=== PATIENT | female | born 1995 | race African-American/Black ===

== ENCOUNTER 2016-09-15 12:15 | Emergency (ER) | payer OTHER ==
[~2016-09-15] VITALS: Ht 162.6 cm; Wt 74.4 kg
[2016-09-15] MEDS ORDERED: prenatal vitamin PO (12:28)
[2016-09-15] MEDS ORDERED: ACETAMINOPHEN 325 MG TAB PO ONE (13:00)
[2016-09-15] MEDS ORDERED: NS 1,000 ML IV ONE (13:00)
[2016-09-15] MEDS ORDERED: METOCLOPRAMIDE INJ 10MG/2ML VIAL (J2765) IV ONE (13:00)
[2016-09-15] MEDS ORDERED: ONDANSETRON 4MG/2ML VIAL (J2405) IV ONE (13:00)
[2016-09-15 13:30] LABS: BASO % 0.5 % (0.0-1.0); EOS # 0.2 K/mm3 (0.0-0.50); EOS % 3.9 % (0.0-3.0); LARGE UNSTAINED CELL # 0.1 K/mm3 (0.0-0.4); LARGE UNSTAINED CELL % 1.9 % (0.0-4.0); LYMPH # 1.9 K/mm3 (1.5-6.5); LYMPH % 30.3 % (24.0-44.0); MEAN CORPUSCULAR HEMOGLOBIN 30.5 pg (27.0-33.0); MEAN CORPUSCULAR HGB CONC 33.8 g/dl (32.0-36.5); MEAN CORPUSCULAR VOLUME 90.2 fl (80.0-96.0); MONO # 0.3 K/mm3 (0.0-0.8); MONO % 4.5 % (0.0-5.0); NEUTROPHILS # 3.7 K/mm3 (1.8-7.7); NEUTROPHILS % 58.9 % (36.0-66.0); PLATELET COUNT, AUTOMATED 214 k/mm3 (150-450); RED CELL DISTRIBUTION WIDTH 12.7 % (11.5-14.5); WHITE BLOOD COUNT 6.2 K/mm3 (4.0-10.0)
--- NOTE | 2016-09-15 13:42 | REP ---
FIRST TRIMESTER ULTRASOUND: Real-time sonographic evaluation of the gravid uterus is performed utilizing transabdominal technique. There is a single living intrauterine gestation, estimated gestational age 8 weeks 4 days based on crown rump length of 20 mm, EDC 04/23/2017. heart rate 168 beats per minute. There is no subchorionic hemorrhage. No definite maternal adnexal region abnormality is seen. There is trace free fluid. Signed by Manpreet Hernandez MD 09/15/2016 07:49 P
[2016-09-15] MEDS ORDERED: REGL5TAB2 PO (13:56)
[2016-09-15 14:05] LABS: ALBUMIN 3.4 GM/DL (3.2-5.2); ALBUMIN/GLOBULIN RATIO 0.79 (1.00-1.93); ALKALINE PHOSPHATASE 53 U/L (45-117); ALT/SGPT 19 U/L (12-78); ANION GAP 8 MEQ/L (8-16); AST/SGOT 12 U/L (15-37); BILIRUBIN,DIRECT < 0.1 MG/DL (0.0-0.2); BILIRUBIN,TOTAL 0.3 MG/DL (0.2-1.0); BLOOD UREA NITROGEN 5 MG/DL (7-18); CARBON DIOXIDE LEVEL 25 MEQ/L (21-32); CHLORIDE LEVEL 105 MEQ/L (98-107); GLOMERULAR FILTRATION RATE > 60.0 (>60); GLUCOSE, FASTING 80 MG/DL (70-105); POTASSIUM SERUM 3.6 MEQ/L (3.5-5.1); SODIUM LEVEL 138 MEQ/L (136-145); TOTAL PROTEIN 7.7 GM/DL (6.4-8.2)
[2016-09-15 14:16] VITALS: BP 113/68
== END 2016-09-15 14:28 | disposition home or self-care (01) ==
LOC: M ED 12:46
DX: O21.8 Other vomiting complicating pregnancy (principal); Z3A.08 8 weeks gestation of pregnancy
CPT/HCPCS: 76801; 80048; 80076; 81001; 83690; 84702; 85025; 86901; 96374; 96375; 99284; J2765

== ENCOUNTER 2016-09-20 13:35 | Emergency (ER) | payer OTHER, MEDICAID ==
[~2016-09-20] VITALS: Ht 162.6 cm; Wt 74.4 kg
[~2016-09-20 13:35] MED LIST: REGL5TAB2 PO; prenatal vitamin PO
[2016-09-20] MEDS ORDERED: ACETAMINOPHEN TAB 650MG DOSE (2X325MG) PO ONE (15:15)
[2016-09-20] MEDS ORDERED: NS 1,000 ML IV ONE (15:15)
[2016-09-20] MEDS ORDERED: ONDANSETRON 4MG/2ML VIAL (J2405) IV ONE (15:15)
[2016-09-20 15:50] LABS: BASO # 0.1 K/mm3 (0.0-0.2); BASO % 1.1 % (0.0-1.0); EOS # 0.2 K/mm3 (0.0-0.50); EOS % 2.3 % (0.0-3.0); LARGE UNSTAINED CELL # 0.1 K/mm3 (0.0-0.4); LARGE UNSTAINED CELL % 1.4 % (0.0-4.0); LYMPH # 1.8 K/mm3 (1.5-6.5); LYMPH % 24.3 % (24.0-44.0); MEAN CORPUSCULAR HGB CONC 33.9 g/dl (32.0-36.5); MEAN CORPUSCULAR VOLUME 88.5 fl (80.0-96.0); MONO # 0.3 K/mm3 (0.0-0.8); MONO % 4.1 % (0.0-5.0); NEUTROPHILS # 4.6 K/mm3 (1.8-7.7); NEUTROPHILS % 66.6 % (36.0-66.0); PLATELET COUNT, AUTOMATED 217 k/mm3 (150-450); RED CELL DISTRIBUTION WIDTH 12.9 % (11.5-14.5)
[2016-09-20 16:09] LABS: ALBUMIN 3.8 GM/DL (3.2-5.2); ALBUMIN/GLOBULIN RATIO 0.86 (1.00-1.93); ALKALINE PHOSPHATASE 57 U/L (45-117); ALT/SGPT 28 U/L (12-78); ANION GAP 9 MEQ/L (8-16); AST/SGOT 21 U/L (15-37); BILIRUBIN,DIRECT < 0.1 MG/DL (0.0-0.2); BILIRUBIN,TOTAL 0.3 MG/DL (0.2-1.0); BLOOD UREA NITROGEN 4 MG/DL (7-18); CALCIUM LEVEL 9.1 MG/DL (8.5-10.1); CARBON DIOXIDE LEVEL 25 MEQ/L (21-32); CHLORIDE LEVEL 104 MEQ/L (98-107); CREATININE FOR GFR 0.64 MG/DL (0.55-1.02); GLOMERULAR FILTRATION RATE > 60.0 (>60); GLUCOSE, FASTING 84 MG/DL (70-105); SODIUM LEVEL 138 MEQ/L (136-145); TOTAL PROTEIN 8.2 GM/DL (6.4-8.2)
[2016-09-20] MEDS ORDERED: ZOFR4TAB3 PO (17:02)
[2016-09-20] MEDS ORDERED: PYRI25TA3 PO (17:02)
[2016-09-20 17:38] VITALS: BP 124/66
== END 2016-09-20 17:41 | disposition home or self-care (01) ==
LOC: M ED 14:59
DX: O21.9 Vomiting of pregnancy, unspecified (principal); Z3A.09 9 weeks gestation of pregnancy
CPT/HCPCS: 80048; 80076; 81001; 83690; 85025; 96361; 96374; 99282; J2405

== ENCOUNTER 2016-10-01 14:35 | Emergency (ER) | payer OTHER, MEDICAID ==
[~2016-10-01] VITALS: Ht 162.6 cm; Wt 74.4 kg
[~2016-10-01 14:35] MED LIST changes: +PYRI25TA3 PO; +ZOFR4TAB3 PO
[2016-10-01] MEDS ORDERED: PANTOPRAZOLE 40MG INJ (PROTONIX) (C9113) IV ONE (15:15)
[2016-10-01] MEDS ORDERED: ONDANSETRON 4MG/2ML VIAL (J2405) IV ONE (15:15)
[2016-10-01] MEDS ORDERED: NS 1,000 ML IV ONE ×2 (15:15→18:45)
[2016-10-01 16:28] LABS: BASO % 0.6 % (0.0-1.0); EOS # 0.2 K/mm3 (0.0-0.50); LARGE UNSTAINED CELL # 0.1 K/mm3 (0.0-0.4); LARGE UNSTAINED CELL % 1.2 % (0.0-4.0); LYMPH # 2.4 K/mm3 (1.5-6.5); LYMPH % 30.5 % (24.0-44.0); MEAN CORPUSCULAR HEMOGLOBIN 30.1 pg (27.0-33.0); MEAN CORPUSCULAR HGB CONC 34.5 g/dl (32.0-36.5); MONO # 0.3 K/mm3 (0.0-0.8); MONO % 3.3 % (0.0-5.0); NEUTROPHILS # 4.7 K/mm3 (1.8-7.7); NEUTROPHILS % 61.4 % (36.0-66.0); PLATELET COUNT, AUTOMATED 218 k/mm3 (150-450); RED CELL DISTRIBUTION WIDTH 12.6 % (11.5-14.5); WHITE BLOOD COUNT 7.7 K/mm3 (4.0-10.0)
[2016-10-01 16:56] LABS: ALBUMIN 3.4 GM/DL (3.2-5.2); ALBUMIN/GLOBULIN RATIO 0.74 (1.00-1.93); ALKALINE PHOSPHATASE 55 U/L (45-117); ALT/SGPT 22 U/L (12-78); ANION GAP 9 MEQ/L (8-16); AST/SGOT 11 U/L (15-37); BILIRUBIN,DIRECT 0.1 MG/DL (0.0-0.2); BILIRUBIN,TOTAL 0.3 MG/DL (0.2-1.0); BLOOD UREA NITROGEN 3 MG/DL (7-18); CALCIUM LEVEL 9.1 MG/DL (8.5-10.1); CARBON DIOXIDE LEVEL 25 MEQ/L (21-32); CHLORIDE LEVEL 103 MEQ/L (98-107); CREATININE FOR GFR 0.63 MG/DL (0.55-1.02); GLOMERULAR FILTRATION RATE > 60.0 (>60); GLUCOSE, FASTING 81 MG/DL (70-105); POTASSIUM SERUM 3.1 MEQ/L (3.5-5.1); SODIUM LEVEL 137 MEQ/L (136-145)
[2016-10-01 18:56] VITALS: BP 114/60
[2016-10-01] MEDS ORDERED: ZOFR4TAB3 PO (19:51)
== END 2016-10-01 19:55 | disposition home or self-care (01) ==
LOC: M ED 15:30
DX: O21.0 Mild hyperemesis gravidarum (principal); Z3A.11 11 weeks gestation of pregnancy
CPT/HCPCS: 80048; 80076; 85025; 87086; 96361; 96374; 96375; 99283; C9113; J2405

== ENCOUNTER 2016-10-16 21:49 | Emergency (ER) | payer MEDICAID, OTHER ==
[~2016-10-16] VITALS: Ht 162.6 cm; Wt 68.9 kg
[2016-10-16] MEDS ORDERED: METOCLOPRAMIDE INJ 10MG/2ML VIAL (J2765) As Ordered ONE (22:49)
[2016-10-16] MEDS ORDERED: METOCLOPRAMIDE INJ 10MG/2ML VIAL (J2765) IV ONE (23:00)
[2016-10-16] MEDS ORDERED: NS 1,000 ML IV ONE (23:00)
[2016-10-17 00:24] LABS: ANION GAP 8 MEQ/L (8-16); BLOOD UREA NITROGEN 3 MG/DL (7-18); CALCIUM LEVEL 9.2 MG/DL (8.5-10.1); CARBON DIOXIDE LEVEL 23 MEQ/L (21-32); CHLORIDE LEVEL 107 MEQ/L (98-107); CREATININE FOR GFR 0.43 MG/DL (0.55-1.02); GLOMERULAR FILTRATION RATE > 60.0 (>60); GLUCOSE, FASTING 92 MG/DL (70-105); POTASSIUM SERUM 3.5 MEQ/L (3.5-5.1); SODIUM LEVEL 138 MEQ/L (136-145)
[2016-10-17 00:25] LABS: MEAN CORPUSCULAR VOLUME 87.7 fl (80.0-96.0); WHITE BLOOD COUNT 6.6 K/mm3 (4.0-10.0)
[2016-10-17 00:26] LABS: BASO % 0.4 % (0.0-1.0); EOS # 0.2 K/mm3 (0.0-0.50); EOS % 2.3 % (0.0-3.0); LARGE UNSTAINED CELL # 0.1 K/mm3 (0.0-0.4); LARGE UNSTAINED CELL % 1.5 % (0.0-4.0); LYMPH # 1.6 K/mm3 (1.5-6.5); LYMPH % 24.9 % (24.0-44.0); MEAN CORPUSCULAR HEMOGLOBIN 29.9 pg (27.0-33.0); MEAN CORPUSCULAR HGB CONC 34.1 g/dl (32.0-36.5); MONO # 0.3 K/mm3 (0.0-0.8); MONO % 4.6 % (0.0-5.0); NEUTROPHILS # 4.4 K/mm3 (1.8-7.7); NEUTROPHILS % 66.2 % (36.0-66.0); PLATELET COUNT, AUTOMATED 215 k/mm3 (150-450); RED CELL DISTRIBUTION WIDTH 12.4 % (11.5-14.5)
[2016-10-17 00:38] VITALS: BP 111/60
[2016-10-17] MEDS ORDERED: REGL10TA6 PO (00:38)
[2016-10-18] MEDS ORDERED: VITA25TA (18:03)
== END 2016-10-17 00:40 | disposition home or self-care (01) ==
LOC: M ED 23:36
DX: O21.0 Mild hyperemesis gravidarum (principal); Z3A.13 13 weeks gestation of pregnancy
CPT/HCPCS: 36415; 80048; 85025; 96361; 96374; 99283; J2765

== ENCOUNTER 2016-10-18 17:35 | Emergency (ER) | payer OTHER ==
[~2016-10-18] VITALS: Ht 162.6 cm; Wt 68.9 kg
[~2016-10-18 17:35] MED LIST changes: +REGL10TA6 PO
[2016-10-18] MEDS ORDERED: VITA25TA (18:03)
[2016-10-18] MEDS ORDERED: METOCLOPRAMIDE INJ 10MG/2ML VIAL (J2765) IV ONE (18:30)
[2016-10-18] MEDS ORDERED: NS 1,000 ML IV ONE (18:30)
[2016-10-18 19:02] LABS: BASO % 0.5 % (0.0-1.0); EOS # 0.1 K/mm3 (0.0-0.50); LARGE UNSTAINED CELL # 0.1 K/mm3 (0.0-0.4); LARGE UNSTAINED CELL % 1.1 % (0.0-4.0); LYMPH # 1.5 K/mm3 (1.5-6.5); LYMPH % 20.8 % (24.0-44.0); MEAN CORPUSCULAR HEMOGLOBIN 30.4 pg (27.0-33.0); MEAN CORPUSCULAR HGB CONC 34.7 g/dl (32.0-36.5); MEAN CORPUSCULAR VOLUME 87.6 fl (80.0-96.0); MONO # 0.2 K/mm3 (0.0-0.8); MONO % 3.1 % (0.0-5.0); NEUTROPHILS # 5.4 K/mm3 (1.8-7.7); NEUTROPHILS % 73.5 % (36.0-66.0); PLATELET COUNT, AUTOMATED 238 k/mm3 (150-450); RED CELL DISTRIBUTION WIDTH 12.4 % (11.5-14.5); WHITE BLOOD COUNT 7.3 K/mm3 (4.0-10.0)
[2016-10-18 19:24] LABS: ALBUMIN 3.3 GM/DL (3.2-5.2); ALBUMIN/GLOBULIN RATIO 0.75 (1.00-1.93); ALKALINE PHOSPHATASE 52 U/L (45-117); ALT/SGPT 19 U/L (12-78); ANION GAP 10 MEQ/L (8-16); AST/SGOT 13 U/L (15-37); BILIRUBIN,DIRECT < 0.1 MG/DL (0.0-0.2); BILIRUBIN,TOTAL 0.3 MG/DL (0.2-1.0); BLOOD UREA NITROGEN 3 MG/DL (7-18); CALCIUM LEVEL 9.2 MG/DL (8.5-10.1); CARBON DIOXIDE LEVEL 24 MEQ/L (21-32); CHLORIDE LEVEL 103 MEQ/L (98-107); GLOMERULAR FILTRATION RATE > 60.0 (>60); GLUCOSE, FASTING 86 MG/DL (70-105); POTASSIUM SERUM 3.1 MEQ/L (3.5-5.1); SODIUM LEVEL 137 MEQ/L (136-145); TOTAL PROTEIN 7.7 GM/DL (6.4-8.2)
[2016-10-18 20:38] VITALS: BP 138/71
== END 2016-10-18 21:09 | disposition home or self-care (01) ==
LOC: M ED 19:04
DX: O21.0 Mild hyperemesis gravidarum (principal); O26.891 Other specified pregnancy related conditions, first trimester; R10.84 Generalized abdominal pain; Z3A.13 13 weeks gestation of pregnancy
CPT/HCPCS: 36415; 80048; 80076; 83735; 85025; 96374; 99284; J2765

== ENCOUNTER 2016-10-20 05:41 | Emergency (ER) | payer OTHER, MEDICAID ==
[~2016-10-20] VITALS: Ht 162.6 cm; Wt 68.9 kg
[~2016-10-20 05:41] MED LIST changes: -DICL10TA PO; -PRENTAB40 PO; -PROM25TA PO
[2016-10-20] MEDS ORDERED: PRENTAB40 PO (05:52)
[2016-10-20] MEDS ORDERED: METOCLOPRAMIDE INJ 10MG/2ML VIAL (J2765) IV ONE (06:45)
[2016-10-20] MEDS ORDERED: NS 1,000 ML IV ONE (06:45)
[2016-10-20 06:55] LABS: BASO % 0.4 % (0.0-1.0); EOS # 0.1 K/mm3 (0.0-0.50); EOS % 0.7 % (0.0-3.0); LARGE UNSTAINED CELL # 0.1 K/mm3 (0.0-0.4); LYMPH # 1.4 K/mm3 (1.5-6.5); LYMPH % 14.3 % (24.0-44.0); MEAN CORPUSCULAR HEMOGLOBIN 30.3 pg (27.0-33.0); MEAN CORPUSCULAR HGB CONC 34.8 g/dl (32.0-36.5); MONO # 0.4 K/mm3 (0.0-0.8); MONO % 4.1 % (0.0-5.0); NEUTROPHILS # 7.2 K/mm3 (1.8-7.7); NEUTROPHILS % 79.5 % (36.0-66.0); PLATELET COUNT, AUTOMATED 266 k/mm3 (150-450); RED CELL DISTRIBUTION WIDTH 12.6 % (11.5-14.5)
[2016-10-20 07:18] LABS: ALBUMIN 3.4 GM/DL (3.2-5.2); ALBUMIN/GLOBULIN RATIO 0.68 (1.00-1.93); ALKALINE PHOSPHATASE 56 U/L (45-117); ALT/SGPT 25 U/L (12-78); ANION GAP 10 MEQ/L (8-16); AST/SGOT 15 U/L (15-37); BILIRUBIN,DIRECT 0.1 MG/DL (0.0-0.2); BILIRUBIN,TOTAL 0.6 MG/DL (0.2-1.0); BLOOD UREA NITROGEN 5 MG/DL (7-18); CALCIUM LEVEL 9.8 MG/DL (8.5-10.1); CARBON DIOXIDE LEVEL 23 MEQ/L (21-32); CHLORIDE LEVEL 105 MEQ/L (98-107); CREATININE FOR GFR 0.57 MG/DL (0.55-1.02); GLOMERULAR FILTRATION RATE > 60.0 (>60); GLUCOSE, FASTING 94 MG/DL (70-105); HCG, SERUM QUANTITATIVE 90834 MIU/ML; SODIUM LEVEL 138 MEQ/L (136-145); TOTAL PROTEIN 8.4 GM/DL (6.4-8.2)
[2016-10-20] MEDS ORDERED: POTASSIUM CHLORIDE 10 MEQ SR TABLET PO ONE ×2 (08:15)
[2016-10-20 08:36] VITALS: BP 122/72
== END 2016-10-20 08:47 | disposition home or self-care (01) ==
LOC: M ED 07:05
DX: O21.0 Mild hyperemesis gravidarum (principal); O99.281 Endocrine, nutritional and metabolic diseases complicating pregnancy, first trimester; E87.6 Hypokalemia; Z3A.13 13 weeks gestation of pregnancy
CPT/HCPCS: 76801; 80048; 80076; 83690; 84439; 84443; 84702; 85025; 85027; 86762; 86780; 86803; 86850; 86900; 86901; 87086; 87340; 87899; 93041; 96361; 96374; 99284; J2765

== ENCOUNTER → 2016-10-20 | Outpatient (REF) | payer OTHER, MEDICAID ==
[~2016-10-20] MED LIST changes: +DICL10TA PO; +PRENTAB40 PO; +PROM25TA PO; +VITA25TA
[2016-10-20 17:18] LABS: MEAN CORPUSCULAR HGB CONC 34.1 g/dl (32.0-36.5); MEAN CORPUSCULAR VOLUME 87.8 fl (80.0-96.0); RED CELL DISTRIBUTION WIDTH 12.5 % (11.5-14.5); WHITE BLOOD COUNT 8.6 K/mm3 (4.0-10.0)
[2016-10-20 19:29] LABS: FREE T4 1.24 NG/DL (0.76-1.46)
== END ==
LOC: M LAB REF 16:35
PROVIDERS: ATTEND Advanced Practice Midwife
DX: O21.0 Mild hyperemesis gravidarum (principal)

== ENCOUNTER 2016-10-23 18:49 | Observation (INO) | payer MEDICAID, OTHER ==
[~2016-10-23] VITALS: Ht 162.6 cm; Wt 68.6 kg
[~2016-10-23 18:49] MED LIST changes: +PRENTAB40 PO
[2016-10-23] MEDS ORDERED: NS 1,000 ML IV STA (19:19)
--- NOTE | 2016-10-23 19:46 | ED PDOC ---
Post-Departure Follow-Up Patient presents to the ED for evaluation of hyperemesis gravidum. According to the , who is translating for her, she has had persistent nausea/ vomiting for many weeks. She has been taking Pyridoxine and Reglan, with improvement but not resolution. He states that she is vomiting "many times a day". On review of her records, this is her 7th ED visit, for this complaint since the beginning of September. See her T-sheet for the remainder of her H&P and ROS. Orthostatics completed, which were markedly positive. Saline lock established and 2L NS ordered. CBC, CMP ordered to evaluate hydration status. FHT obtained 150-160. GUNJAN SALEH. [facility] Oct 23, 2016 19:46
[2016-10-23 19:57] LABS: BASO % 0.4 % (0.0-1.0); EOS # 0.3 K/mm3 (0.0-0.50); EOS % 2.8 % (0.0-3.0); LARGE UNSTAINED CELL # 0.1 K/mm3 (0.0-0.4); LARGE UNSTAINED CELL % 1.5 % (0.0-4.0); LYMPH # 2.5 K/mm3 (1.5-6.5); LYMPH % 25.3 % (24.0-44.0); MEAN CORPUSCULAR HEMOGLOBIN 29.9 pg (27.0-33.0); MEAN CORPUSCULAR HGB CONC 34.6 g/dl (32.0-36.5); MEAN CORPUSCULAR VOLUME 86.5 fl (80.0-96.0); MONO # 0.3 K/mm3 (0.0-0.8); MONO % 3.6 % (0.0-5.0); NEUTROPHILS # 6.2 K/mm3 (1.8-7.7); NEUTROPHILS % 66.4 % (36.0-66.0); PLATELET COUNT, AUTOMATED 255 k/mm3 (150-450); RED CELL DISTRIBUTION WIDTH 12.6 % (11.5-14.5); WHITE BLOOD COUNT 9.3 K/mm3 (4.0-10.0)
[2016-10-23 20:18] LABS: ANION GAP 12 MEQ/L (8-16); BLOOD UREA NITROGEN 5 MG/DL (7-18); CALCIUM LEVEL 9.4 MG/DL (8.5-10.1); CARBON DIOXIDE LEVEL 23 MEQ/L (21-32); CHLORIDE LEVEL 100 MEQ/L (98-107); GLOMERULAR FILTRATION RATE > 60.0 (>60); GLUCOSE, FASTING 87 MG/DL (70-105); POTASSIUM SERUM 2.7 MEQ/L (3.5-5.1); SODIUM LEVEL 135 MEQ/L (136-145)
[2016-10-23] MEDS ORDERED: POTASSIUM CHLORIDE 10 MEQ SR TABLET PO ONE (20:30)
[2016-10-23] MEDS ORDERED: POTASSIUM CHLORIDE INJ 20 MEQ in D5W/LR 1,000 ML IV ONE (20:45)
[2016-10-23] MEDS ORDERED: METOCLOPRAMIDE INJ 10MG/2ML VIAL (J2765) IV ONE (20:45)
[2016-10-23] MEDS ORDERED: DICL10TA PO (21:26)
[2016-10-23] MEDS ORDERED: PROM25TA PO (21:26)
--- NOTE | 2016-10-23 22:06 | ED PDOC ---
Post-Departure Follow-Up Discussed admission with Mirna Francisco CNM. Patient has received 1 liter NS, is currently receiving 1 liter D5LR w/ 20 KCL @ 500 ml/hr and 40 meq oral potassium. This is her 7th ED visit since the beginning of September. She continues to be orthostatic and her potassium has been steadily dropping over the past 4 visit. GUNJAN SALEH. [facility] Oct 23, 2016 22:06
[2016-10-23] MEDS ORDERED: POTASSIUM CHLORIDE INJ 20 MEQ in D5W/LR 1,000 ML IV SCH (23:15)
[2016-10-23] MEDS: D5W/0.9% SODIUM CHLORIDE 1,000 ML IV SCH (23:30)
[2016-10-24 00:40] VITALS: BP 123/82
[2016-10-24 04:00] VITALS: BP 103/62
[2016-10-24] MEDS: D5W/0.9% SODIUM CHLORIDE 1,000 ML IV SCH (06:59)
[2016-10-24 08:00] VITALS: BP 140/92
[2016-10-24] MEDS ORDERED: LANSOPRAZOLE SUSPENSION 30 MG/10 ML ORAL SYRINGE (FIRST-LANSOPRAZOLE) PO SCH (09:00)
[2016-10-24] MEDS: ONDANSETRON 4MG/2ML VIAL (J2405) IV PRN ×2 (10:50→20:56)
[2016-10-24 11:11] LABS: ALBUMIN 2.5 GM/DL (3.2-5.2); ALBUMIN/GLOBULIN RATIO 0.66 (1.00-1.93); ALKALINE PHOSPHATASE 45 U/L (45-117); ALT/SGPT 30 U/L (12-78); ANION GAP 6 MEQ/L (8-16); AST/SGOT 16 U/L (15-37); BILIRUBIN,TOTAL 0.6 MG/DL (0.2-1.0); BLOOD UREA NITROGEN 3 MG/DL (7-18); CARBON DIOXIDE LEVEL 24 MEQ/L (21-32); CHLORIDE LEVEL 108 MEQ/L (98-107); CREATININE FOR GFR 0.54 MG/DL (0.55-1.02); GLOMERULAR FILTRATION RATE > 60.0 (>60); GLUCOSE, FASTING 115 MG/DL (70-105); POTASSIUM SERUM 3.2 MEQ/L (3.5-5.1); SODIUM LEVEL 138 MEQ/L (136-145); TOTAL PROTEIN 6.3 GM/DL (6.4-8.2)
[2016-10-24 12:00] VITALS: BP 129/68
[2016-10-24] MEDS ORDERED: MULTIVITAMIN -ADULT INJECTION 10 ML, THIAMINE INJection 100 MG, FOLIC ACID 1 MG in NS 1... IV ONE (14:00)
[2016-10-24 16:00] VITALS: BP 110/55
[2016-10-24] MEDS ORDERED: LR 1,000 ML IV SCH (19:04)
[2016-10-24 20:00] VITALS: BP 120/65
--- NOTE | 2016-10-24 20:11 | IPNPDOC ---
Subjective Date Seen The patient was seen on 10/24/16 1200. Subjective Chief Complaint/HPI The patient is a 21-year-old female who is a at 14 weeks 1 day gestation with an TIERRA of 04/23/17 based off of a 1st trimester ultrasound. She initiated care at [facility] on 10/20/16 at 13.4 wks gestation. Her has been complicated by hyperemesis gravidarum. She reports vomiting an average of 20 + times per day. Patient speaks Zimbabwean fluently but does have her cousin, who is a soldier, help translate and interpret. She has been to the ED at total of 7 times, with this visit being number 7. She presented to the ED complaints of nausea and vomiting. She has been unable to keep anything down for multiple days. She was admitted to the pediatric floor for IV hydration, hyperemesis gravidarum, and hypokalemia. The patient currently denies any vaginal bleeding or leaking of fluid. This morning patient reports she is feeling slightly better and has only vomited one time this morning. She did not vomit last night after receiving anti-nausea medication and IV hydration. She has been able to tolerate small amounts of PO fluids and saltine crackers. General: Reports: Fatigue, Malaise, Denies: Chills, Night Sweats, Normal Appetite Constitutional: Reports: Malaise, Weakness, Fatigue, Weight Loss, Denies: Chills, Fever, Night Sweats Pulmonary: Denies: Dyspnea Cardiovascular: Denies: Chest Pain, Edema Gastrointestinal: Reports: Nausea, Vomiting, Other Symptoms (heartburn), Denies: Abdominal Pain, Diarrhea, Constipation, Melena, Hematochezia Genitourinary: Denies: Dysuria, Frequency, Incontinence, Hematuria, Retention Neurological: Reports: Weakness Objective Physical Examination General Exam: Positive: Alert, Cooperative, Negative: No Acute Distress Eye Exam: Positive: Conjunctiva & lids normal ENT Exam: Positive: Mucous membr. moist/pink Chest Exam: Positive: Clear to auscultation, Normal air movement, Negative: Rales, Rhonchi, Wheezing Heart Exam: Positive: Rate Normal, Regular Rhythm, Negative: Gallops, Murmurs, Rubs Abdomen Exam: Positive: Normal bowel sounds, Soft, Negative: Tenderness Extremity Exam: Negative: Edema, Swelling Skin Exam: Positive: Nl turgor and temperature, Other skin issue (old, healed scabs on arms from bed bugs. ) Neuro Exam: Positive: Normal Tone Psych Exam: Positive: Oriented x 3 Assessment /Plan Assessment Assessment: IUP at 14 weeks 1 day gestation Hyperemesis gravidarum Hypokalemia Transient hyperthyroidism of hyperemesis gravidarum Plan/VTE VTE Prophylaxis Ordered?: No VTE Exclusion Mechanical Proph: Low Risk for VTE Plan IVF: Continue Diet: Advance Activity: Advance Patient was admitted for 23 hour observation on Pediatrics. Continue IV hydration. New order for a banana bag. D/C D5W NS. PNV ordered. Continue with IV Zofran as needed. Antacid ordered. Diet changed to BRAT diet. New labs ordered. Education done with patient and senior environmental consultant on discharge plan. Zofran, a stool softner, and Zantac sent to pharmacy. 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 Patient can continue Zofran every 6 -8 hours as needed for nausea. Can use rectal phenergan if Zofran is not effective. Education done on continued dosing of Zofran every 6 to 8 hours to help control nausea and vomiting. Patient has an appointment to follow up with me this week. Reviewed that this condition can return with subsequent pregnancies and may continue through entire . Dr. Crawley aware of patient being in department and plan of care was reviewed with him. Anticipate discharge later tonight. VS, I&O, 24H, Fishbone Vital Signs/I&O Vital Signs Date Time Temp Pulse Resp B/P (MAP) Pulse Ox O2 Delivery O2 Flow Rate FiO2 10/24/16 16:00 99.5 93 18 110/55 (73) 100 Room Air Laboratory Data 24H LABS Laboratory Tests 2 10/23/16 19:41: White Blood Count 9.3, Red Blood Count 4.79, Hemoglobin 14.3, Hematocrit 41.4, Mean Corpuscular Volume 86.5, Mean Corpuscular Hemoglobin 29.9, Mean Corpuscular Hemoglobin Concent 34.6, Red Cell Distribution Width 12.6, Platelet Count 255, Neutrophils (%) (Auto) 66.4H, Lymphocytes (%) (Auto) 25.3, Monocytes (%) (Auto) 3.6, Eosinophils (%) (Auto) 2.8, Basophils (%) (Auto) 0.4, Neutrophils # (Auto) 6.2, Lymphocytes # (Auto) 2.5, Monocytes # (Auto) 0.3, Eosinophils # (Auto) 0.3, Basophils # (Auto) 0.0, Large Unclassified Cells % 1.5 , Large Unclassified Cells # 0.1, Anion Gap 12, Glomerular Filtration Rate > 60.0, Blood Urea Nitrogen 5L, Creatinine 0.50L, Sodium Level 135L, Potassium Level 2.7*L, Chloride Level 100, Carbon Dioxide Level 23, Calcium Level 9.4 10/24/16 10:27: Anion Gap 6L, Glomerular Filtration Rate > 60.0, Blood Urea Nitrogen 3L, Creatinine 0.54L, Sodium Level 138, Potassium Level 3.2L, Chloride Level 108H, Carbon Dioxide Level 24, Calcium Level 8.0L, Aspartate Amino Transf (AST/SGOT) 16, Alanine Aminotransferase (ALT/SGPT) 30, Alkaline Phosphatase 45, Total Bilirubin 0.6, Total Protein 6.3L, Albumin 2.5L, Albumin/Globulin Ratio 0.66L CBC/BMP Laboratory Tests 10/23/16 19:41 Red Blood Count 4.79, Mean Corpuscular Volume 86.5, Mean Corpuscular Hemoglobin 29.9, Mean Corpuscular Hemoglobin Concent 34.6, Red Cell Distribution Width 12.6 , Neutrophils (%) (Auto) 66.4 H, Lymphocytes (%) (Auto) 25.3, Monocytes (%) ( Auto) 3.6, Eosinophils (%) (Auto) 2.8, Basophils (%) (Auto) 0.4, Neutrophils # ( Auto) 6.2, Lymphocytes # (Auto) 2.5, Monocytes # (Auto) 0.3, Eosinophils # (Auto ) 0.3, Basophils # (Auto) 0.0, Calcium Level 9.4 10/23/16 23:09 10/24/16 10:27 Calcium Level 8.0 L, Aspartate Amino Transf (AST/SGOT) 16, Alanine Aminotransferase (ALT/SGPT) 30, Alkaline Phosphatase 45, Total Bilirubin 0.6, Total Protein 6.3 L, Albumin 2.5 L ELLIOT RICHARDS Oct 24, 2016 20:11
[2016-10-24 20:49] LABS: ALBUMIN 2.3 GM/DL (3.2-5.2); ALBUMIN/GLOBULIN RATIO 0.77 (1.00-1.93); ALKALINE PHOSPHATASE 44 U/L (45-117); ALT/SGPT 28 U/L (12-78); ANION GAP 7 MEQ/L (8-16); AST/SGOT 13 U/L (15-37); BILIRUBIN,TOTAL 0.3 MG/DL (0.2-1.0); BLOOD UREA NITROGEN 3 MG/DL (7-18); CARBON DIOXIDE LEVEL 24 MEQ/L (21-32); CHLORIDE LEVEL 111 MEQ/L (98-107); GLOMERULAR FILTRATION RATE > 60.0 (>60); GLUCOSE, FASTING 95 MG/DL (70-105); SODIUM LEVEL 142 MEQ/L (136-145); TOTAL PROTEIN 5.3 GM/DL (6.4-8.2)
--- NOTE | 2016-10-24 21:25 | DS.PDOC ---
Discharge Summary General Date of Admission Oct 23, 2016 at 23:25 Date of Discharge 10/24/16 at 2300. Discharge Summary PROCEDURES PERFORMED DURING STAY: None. ADMITTING DIAGNOSES: 1. Hyperemesis gravidarum 2. hypokalemia 3. IUP @ 14.1 wks gestation DISCHARGE DIAGNOSES: same of above COMPLICATIONS/CHIEF COMPLAINT: nausea and vomiting HISTORY OF PRESENT ILLNESS: Patient is a 21 year old female who is a who is 14.1 weeks gestation. She was admitted to pediatrics department from ED. She reports only vomiting once since admission. She reports she feels much better now. She has been able to tolerate fluids and food PO today. Reports she is ready to go home. DISCHARGE MEDICATIONS: gummy PO daily; Zofran 8 mg PO every 6 to 8 hours for nausea; Zantac 150 mg PO BID for heartburn; stool softner 1 tab PO BID as needed for constipation. ALLERGIES: Please see below. PHYSICAL EXAMINATION ON DISCHARGE: VITAL SIGNS: Please see below. LABORATORY DATA: Please see below. ACTIVITY: As tolerated. DIET: BRAT diet. Progress to regular diet in 2 days if nausea and vomiting have decreased. DISCHARGE INSTRUCTIONS: 1. Remove saline lock. Discharge to home with family. 2. Follow up in office next week. Appointment with the nurse Wednesday at 1300. Office will call patient and make her an appointment to follow up on hyperemesis for Wednesday or Wednesday this week with provider. 3. Continue taking Zofran 8 mg PO every 6 to 8 hours around the clock for nausea. Take gummy PO daily. Zantac 150 mg PO BID. Stool softner PO BID as needed for constipation. 4. Continue BRAT diet tomorrow and if nausea and vomiting are manageable- transition to a regular diet. 5. Patient encouraged to call office at [phone] if she is unable to keep fluids down for more than 24 hours. Patient is to call with any heavy bright red vaginal bleeding. DISCHARGE CONDITION: Stable. Vital Signs/I&Os Vital Signs Date Time Temp Pulse Resp B/P (MAP) Pulse Ox O2 Delivery O2 Flow Rate FiO2 10/24/16 20:00 99.6 77 20 120/65 (83) 98 Room Air Laboratory Data Labs 24H Laboratory Tests 2 10/24/16 10:27: Anion Gap 6L, Glomerular Filtration Rate > 60.0, Blood Urea Nitrogen 3L, Creatinine 0.54L, Sodium Level 138, Potassium Level 3.2L, Chloride Level 108H, Carbon Dioxide Level 24, Calcium Level 8.0L, Aspartate Amino Transf (AST/SGOT) 16, Alanine Aminotransferase (ALT/SGPT) 30, Alkaline Phosphatase 45, Total Bilirubin 0.6, Total Protein 6.3L, Albumin 2.5L, Albumin/Globulin Ratio 0.66L 10/24/16 20:11: Anion Gap 7L, Glomerular Filtration Rate > 60.0, Blood Urea Nitrogen 3L, Creatinine 0.50L, Sodium Level 142, Potassium Level 3.0L, Chloride Level 111H, Carbon Dioxide Level 24, Calcium Level 8.0L, Aspartate Amino Transf (AST/SGOT) 13L, Alanine Aminotransferase (ALT/SGPT) 28, Alkaline Phosphatase 44L, Total Bilirubin 0.3, Total Protein 5.3L, Albumin 2.3L, Albumin/Globulin Ratio 0.77L CBC/BMP Laboratory Tests 10/23/16 23:09 10/24/16 10:27 Calcium Level 8.0 L, Aspartate Amino Transf (AST/SGOT) 16, Alanine Aminotransferase (ALT/SGPT) 30, Alkaline Phosphatase 45, Total Bilirubin 0.6, Total Protein 6.3 L, Albumin 2.5 L 10/24/16 20:11 Calcium Level 8.0 L, Aspartate Amino Transf (AST/SGOT) 13 L, Alanine Aminotransferase (ALT/SGPT) 28, Alkaline Phosphatase 44 L, Total Bilirubin 0.3, Total Protein 5.3 L, Albumin 2.3 L Discharge Medications Scheduled PRN Promethazine HCl (Promethazine HCl) 25 Mg Tab, 25 MG PO Q6H PRN for NAUSEA, ( Reported) Allergies Coded Allergies: No Known Allergies (Unverified , 09/15/16) ELLIOT RICHARDS CNM Oct 24, 2016 21:25
[2016-10-25] MEDS ORDERED: PRENATAL VITAMIN TAB PO SCH (09:00)
== END 2016-10-24 22:50 | disposition home or self-care (01) ==
LOC: M ED 19:52 → M ED INP 23:25 → M PED 10-24 00:31
PROVIDERS: ADMIT Advanced Practice Midwife; ATTEND Advanced Practice Midwife
DX: O21.0 Mild hyperemesis gravidarum (principal)

== ENCOUNTER → 2016-11-18 | Outpatient (REF) | payer OTHER ==
[~2016-11-18] MED LIST changes: +DICL10TA PO; +PROM25TA PO
[2016-11-18 15:16] LABS: FREE T4 0.97 NG/DL (0.76-1.46)
== END ==
LOC: M LAB REF 12:36
PROVIDERS: ATTEND Advanced Practice Midwife
DX: Z34.91 Encounter for supervision of normal pregnancy, unspecified, first trimester (principal)

== ENCOUNTER → 2016-11-23 | Outpatient (REF) | payer OTHER | LOC: M LAB REF 13:49 | PROVIDERS: ATTEND Advanced Practice Midwife | DX: Z36 Encounter for antenatal screening of mother (principal) ==

== ENCOUNTER → 2016-12-04 | Outpatient (CLI) | payer OTHER ==
--- NOTE | 2016-12-04 09:18 | REP ---
Abdominal right upper quadrant ultrasound: There is a negative Burgos's sign. There is no cholelithiasis, gallbladder wall thickening or pericholecystic fluid. There is no intrahepatic or extrahepatic biliary duct dilatation, the common duct measures 3.8 mm. The hepatic parenchyma is homogeneous and unremarkable. The visualized portion of the pancreatic head is unremarkable. The body and tail are obscured by bowel gas. There is mild right hydronephrosis. There is no right renal calculus, mass or cyst. Right kidney is normal size measuring 920 cm craniocaudad length. Impression: Mild right hydronephrosis. Otherwise, negative abdominal right upper quadrant ultrasound. Signed by Manpreet Martin MD 12/04/2016 09:09 A
--- NOTE | 2016-12-04 09:21 | REP ---
Obstetric ultrasound for anatomy: There is a single intrauterine gestation in a vertex presentation. There is motion and cardiac activity. The heart rate is 144 beats per minute. The placenta is anterior. There is no placenta previa or abruptio. Placenta demonstrates grade zero maturity. The amniotic fluid volume subjectively is normal. The cervix measures 3.1 cm length. Maternal adnexa and cul-de-sac are unremarkable. Gestational age by today's ultrasound is 19 weeks 5 days with an TIERRA of 04/25/2017. Gestational age by the first ultrasound during this gestation is 20 weeks 1 day and by LMP 20 weeks 1 day. The weight is 329 grams (0 pounds, 11 ounces). This is the 49th percentile for 20 weeks 0 days. The following anatomic structures are identified and are unremarkable: Intracranial lateral ventricles, choroid plexus, cerebellum, cavum septum pellucidum, lungs, four-chamber heart, cardiac right ventricular outflow tract, diaphragm, stomach, cord insertion, three-vessel cord, kidneys, bladder, spine and upper lower extremities. Suboptimally demonstrated because of position are the upper lip and cardiac left ventricular outflow tract. A followup study dedicated to these structures might be considered. Otherwise, there are no anomalies Signed by Manpreet Martin MD 12/04/2016 09:14 A
== END ==
LOC: M RAD 07:57
PROVIDERS: ATTEND Advanced Practice Midwife
DX: O21.0 Mild hyperemesis gravidarum (principal); E05.90 Thyrotoxicosis, unspecified without thyrotoxic crisis or storm; Z3A.19 19 weeks gestation of pregnancy

== ENCOUNTER → 2016-12-21 | Outpatient (REF) | payer OTHER ==
[2016-12-21 19:42] LABS: FREE T4 0.9 NG/DL (0.76-1.46); THYROXINE (T4) 15.2 UG/DL (4.5-12.0)
== END ==
LOC: M WHC 17:24
PROVIDERS: ATTEND Advanced Practice Midwife
DX: E05.80 Other thyrotoxicosis without thyrotoxic crisis or storm (principal)

== ENCOUNTER → 2016-12-29 | Outpatient (CLI) | payer OTHER ==
--- NOTE | 2016-12-29 11:59 | REP ---
Obstetric ultrasound for follow-up of anatomy. The prior study dated 12/04/2016 was unable to optimally demonstrate the upper lip, cardiac left ventricular outflow tracts because of position. Otherwise, there were no anomalies. On the study today there is again a single intrauterine gestation. position is variable. There is motion and cardiac activity. The heart rate is 138 beats per minute. The placenta is anterior. There is no placenta previa or abruptio. The placenta is grade zero. The amniotic fluid volume subjectively is normal. The maternal adnexa and cul-de-sac are unremarkable. By the ultrasound today gestational age is 23-week 6 days with an TIERRA of 04/21/2017. Gestational age by the first ultrasound is 23 weeks 4 days and by LMP 23 weeks 4 days. weight is six and 20 grams (1 pound, 5 ounces). This is the 47th percentile for 23 weeks 4 days. The upper lip and left ventricular cardiac outflow tract are optimally demonstrated and are unremarkable. The remainder of the anatomy is unremarkable and unchanged from the prior study. There are no anomalies. Signed by Manpreet Martin MD 12/29/2016 11:50 A
== END ==
LOC: M RAD 10:51
PROVIDERS: ATTEND Advanced Practice Midwife
DX: Z34.82 Encounter for supervision of other normal pregnancy, second trimester (principal); Z3A.23 23 weeks gestation of pregnancy

== ENCOUNTER → 2017-01-19 | Outpatient (REF) | payer OTHER ==
[2017-01-19 19:12] LABS: FREE T4 0.85 NG/DL (0.76-1.46); THYROXINE (T4) 15.8 UG/DL (4.5-12.0)
== END ==
LOC: M LAB REF 16:42
PROVIDERS: ATTEND Advanced Practice Midwife
DX: O09.92 Supervision of high risk pregnancy, unspecified, second trimester (principal); O99.282 Endocrine, nutritional and metabolic diseases complicating pregnancy, second trimester

== ENCOUNTER → 2017-02-02 | Outpatient (CLI) | payer OTHER ==
[2017-02-02 13:56] LABS: MEAN CORPUSCULAR HEMOGLOBIN 28.2 pg (27.0-33.0); MEAN CORPUSCULAR HGB CONC 31.6 g/dl (32.0-36.5); MEAN CORPUSCULAR VOLUME 89.4 fl (80.0-96.0); RED CELL DISTRIBUTION WIDTH 13.1 % (11.5-14.5); WHITE BLOOD COUNT 7.3 K/mm3 (4.0-10.0)
== END ==
LOC: M LAB 11:54
PROVIDERS: ATTEND Advanced Practice Midwife
DX: Z36 Encounter for antenatal screening of mother (principal)

== ENCOUNTER → 2017-03-02 | Outpatient (REF) | payer OTHER ==
[2017-03-02 15:42] LABS: FREE T4 0.92 NG/DL (0.76-1.46)
== END ==
LOC: M LAB REF 12:48
PROVIDERS: ATTEND Advanced Practice Midwife
DX: O09.92 Supervision of high risk pregnancy, unspecified, second trimester (principal); O99.282 Endocrine, nutritional and metabolic diseases complicating pregnancy, second trimester; Z3A.32 32 weeks gestation of pregnancy; O09.93 Supervision of high risk pregnancy, unspecified, third trimester

== ENCOUNTER → 2017-03-31 | Outpatient (REF) | payer OTHER ==
[~2017-03-31] MED LIST changes: +IRON50TA PO; +PRENTAB9 PO; +RANI15TA PO
[2017-03-31 14:20] LABS: FREE T4 0.84 NG/DL (0.76-1.46)
== END ==
LOC: M LAB REF 12:29
PROVIDERS: ATTEND Advanced Practice Midwife
DX: O09.93 Supervision of high risk pregnancy, unspecified, third trimester (principal); O99.283 Endocrine, nutritional and metabolic diseases complicating pregnancy, third trimester; Z3A.00 Weeks of gestation of pregnancy not specified

== ENCOUNTER 2017-04-06 21:12 | Emergency (ER) | payer OTHER ==
[~2017-04-06] VITALS: Ht 165.1 cm; Wt 78.6 kg
[~2017-04-06 21:12] MED LIST changes: -IRON50TA PO; -PRENTAB9 PO; -RANI15TA PO
[2017-04-06 21:13] VITALS: BP 122/74
[2017-04-06] MEDS ORDERED: RANI15TA PO (21:21)
[2017-04-06] MEDS ORDERED: PRENTAB9 PO (23:06)
[2017-04-06] MEDS ORDERED: IRON50TA PO (23:06)
== END 2017-04-06 22:16 | disposition left against medical advice (07) ==
LOC: M ED 21:12
DX: Z53.29 Procedure and treatment not carried out because of patient's decision for other reasons (principal)

== ENCOUNTER 2017-04-06 21:44 | Outpatient (CLI) | payer OTHER ==
[~2017-04-06] VITALS: Ht 154.9 cm; Wt 78.0 kg
[~2017-04-06 21:44] MED LIST changes: +RANI15TA PO
[2017-04-06 22:09] VITALS: BP 133/101
[2017-04-06 22:11] VITALS: BP 137/101
[2017-04-06 22:56] VITALS: BP 132/89
[2017-04-06] MEDS ORDERED: IRON50TA PO (23:06)
[2017-04-06] MEDS ORDERED: PRENTAB9 PO (23:06)
[2017-04-06] MEDS ORDERED: ONDANSETRON 4MG/2ML VIAL (J2405) IV ONE (23:30)
[2017-04-06] MEDS ORDERED: LR 800 ML IV ONE (23:30)
[2017-04-06 23:41] LABS: BASO % 0.4 % (0.0-1.0); EOS # 0.1 10^3/uL (0.0-0.50); EOS % 1.4 % (0.0-3.0); LYMPH # 2.3 10^3/uL (1.5-6.5); LYMPH % 28.2 % (24.0-44.0); MEAN CORPUSCULAR HEMOGLOBIN 28.6 pg (27.0-33.0); MEAN CORPUSCULAR HGB CONC 32.6 g/dl (32.0-36.5); MEAN CORPUSCULAR VOLUME 87.7 fl (80.0-96.0); MONO # 0.7 10^3/uL (0.0-0.8); MONO % 8.9 % (0.0-5.0); NEUTROPHILS # 4.8 10^3/uL (1.8-7.7); NEUTROPHILS % 60.1 % (36.0-66.0); PLATELET COUNT, AUTOMATED 170 10^3/uL (150-450); RED CELL DISTRIBUTION WIDTH 14.4 % (11.5-14.5)
[2017-04-07 00:04] LABS: ALBUMIN 2.5 GM/DL (3.2-5.2); ALBUMIN/GLOBULIN RATIO 0.64 (1.00-1.93); ALKALINE PHOSPHATASE 164 U/L (45-117); ALT/SGPT 13 U/L (12-78); ANION GAP 8 MEQ/L (8-16); AST/SGOT 13 U/L (7-37); BILIRUBIN,TOTAL 0.3 MG/DL (0.2-1.0); BLOOD UREA NITROGEN 2 MG/DL (7-18); CARBON DIOXIDE LEVEL 25 MEQ/L (21-32); CHLORIDE LEVEL 106 MEQ/L (98-107); CREATININE FOR GFR 0.67 MG/DL (0.55-1.02); GLOMERULAR FILTRATION RATE > 60.0 (>60); GLUCOSE, FASTING 87 MG/DL (70-105); POTASSIUM SERUM 3.6 MEQ/L (3.5-5.1); SODIUM LEVEL 139 MEQ/L (136-145); TOTAL PROTEIN 6.4 GM/DL (6.4-8.2); URIC ACID 4.7 MG/DL (2.6-6.0)
[2017-04-07 00:07] VITALS: BP 107/70
[2017-04-07 01:09] VITALS: BP 115/57
[2017-04-07 03:38] VITALS: BP 122/69
[2017-04-07 05:19] VITALS: BP 107/57
== END 2017-04-07 07:16 | disposition home or self-care (01) ==
LOC: M LDO 21:44
PROVIDERS: ATTEND Obstetrics & Gynecology
DX: O21.2 Late vomiting of pregnancy (principal); O99.283 Endocrine, nutritional and metabolic diseases complicating pregnancy, third trimester; E86.0 Dehydration; Z3A.37 37 weeks gestation of pregnancy
CPT/HCPCS: 36415; 80053; 81001; 84550; 85025; 96374; J2405

== ENCOUNTER 2017-04-15 05:04 | Inpatient (IN) | payer OTHER ==
[2017-04-15] VITALS (33 sets, daily range): BP systolic 128–175; BP diastolic 63–103
[~2017-04-15] VITALS: Ht 162.6 cm; Wt 78.3 kg
[~2017-04-15 05:04] MED LIST changes: +IRON50TA PO; +PRENTAB9 PO
[2017-04-15] MEDS ORDERED: LR 1,000 ML IV SCH (06:15)
[2017-04-15 07:00] LABS: MEAN CORPUSCULAR HEMOGLOBIN 28.7 pg (27.0-33.0); MEAN CORPUSCULAR VOLUME 87.2 fl (80.0-96.0); PLATELET COUNT, AUTOMATED 158 10^3/uL (150-450); RED CELL DISTRIBUTION WIDTH 14.4 % (11.5-14.5); WHITE BLOOD COUNT 5.9 10^3/uL (4.0-10.0)
[2017-04-15] MEDS ORDERED: LACTATED RINGER'S 1000 ML IV STA (08:08)
[2017-04-15] MEDS ORDERED: miSOPROStol 50 MCG 1/2 TAB (S0191) PO ONE (11:00)
--- NOTE | 2017-04-15 12:58 | HPEPDOC ---
Obstetrical History & Physical General Date of Admission Apr 15, 2017 at 06:03 Primary Care Physician: ELLIOT RICHARDS CNM History of Present Illness Patient is a 21 -year-old female who is a at 38.6 weeks gestation with an TIERRA of 04/23/17 based off of her 1st trimester ultrasound. She initiated care in her 1st trimester with [facility]. Her care has been complicated by hyperemesis, hyperthyroidism, anemia of . She primary language is Cambodian but she speaks and understands Mohawk well. She presented to L&D with complaints of SROM at 0400 at 04/15/17. 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 Has been living in the since 2016. Staying with her cousin. Marital Status: Single Psychosocial History: No pertinent psych hx * Smoker: non-smoker Alcohol: Denies Drugs: denies Abuse Violence Screening Have you been hit/kicked/slapp: No Have you been sexually assault: No Imunizations Tdap status: current Influenza Status: current Allergies Coded Allergies: No Known Allergies (Unverified , 09/15/16) Medications Scheduled Multivitamins/ ( 27-0.8 mg) 1 Tab Tab, 1 TAB PO DAILY Ranitidine Hcl (Zantac) 150 Mg Tab, 1 TAB PO BID Miscellaneous Medications Ferrous Sulfate (Iron (Ferrous Sulfate)) 50 Mg Tab, 50 MG PO Physical Examination Physical Examination GENERAL: Alert and oriented times three. BREAST: . ABDOMEN: Gravid and non-tender to touch. FETUS: Is vertex (VTX) by sterile vaginal examination (SVE), fetus is vertex ( VTX) by Delmer. HEART RATE: Regular rate and rhythm. LUNGS: Clear to auscultation (CTA). EXTREMITIES: No edema. No clonus. Deep tendon reflexes (DTRs) + . Vital Signs/I&O Vital Signs Date Time Temp Pulse Resp B/P (MAP) Pulse Ox O2 Delivery O2 Flow Rate FiO2 04/15/17 11:13 99.0 92 18 134/80 (98) Laboratory Data 24H LABS Laboratory Tests 2 04/15/17 06:08: Serology Scanned Report Hepatitis B Testing 04/15/17 06:42: Nucleated Red Blood Cells % (auto) 0.0, Urine Amphetamines Screen NEGATIVE, Urine Benzodiazepines Screen NEGATIVE, Urine Opiates Screen NEGATIVE, Urine Methadone Screen NEGATIVE, Urine Barbiturates Screen NEGATIVE, Urine Phencyclidine Screen NEGATIVE, Urine Cocaine Metabolite Screen NEGATIVE, Urine Cannabinoids Screen NEGATIVE CBC/BMP Laboratory Tests 04/15/17 06:42 Red Blood Count 4.14, Mean Corpuscular Volume 87.2, Mean Corpuscular Hemoglobin 28.7, Mean Corpuscular Hemoglobin Concent 33.0, Red Cell Distribution Width 14.4 Urine Culture: No Growth Pertinent Laboratoy Data Blood Type: B+ RBC Antibody Screen: Negative HIV: Negative Hepatitis B: Negative Hepatitis C: Negative Rapid Plasma Reagin: Nonreactive Rubella: Immune Chlamydia/Gonorrhea: Negative Group B Streptococcus: Negative Quad Screen Test: Declined Glucose Tolerance Test: 101 Vaginal Examination Dilation: 1cm Effacement: 75% Station: -2 Cervical Consistency: Soft Cervical Position: Anterior Presentation: Cephalic presentation Position: Vertex (occiput) Assessment Heart Rate (FHR): 130 Variability: Moderate Accelerations: Positive Decelerations: None Tocometer Contractions: Yes Frequency: regular Strength: palpated as mild Multi-drug resistant Organism: No history of MDRO Assessment/Plan Assessment IUP at 38.6 weeks gestation SROM GBS negative Category I FHR tracing Hyperthyroidism Plan Admit to L&D OOB ad delfino. Diet: regular. Group B Streptococcus (GBS) negative. Labs and intravenous (IV) per unit protocol. Counseled on Cytotec and Pitocin augmentation. Lactated Ringers (LR): Bolus 500 mL. Then saline lock. Anticipate cervical change and normal spontaneous delivery (). ELLIOT RICHARDS CNM Apr 15, 2017 12:58
[2017-04-15] MEDS ORDERED: FENTANYL 2MCG/ML ROPIVACAINE 0.2% IN 0.9% NACL 200ML IVBAG As Ordered ONE (15:19)
[2017-04-15] MEDS ORDERED: LACTATED RINGER'S 1000 ML IV PRN (17:45)
[2017-04-15] MEDS ORDERED: REFRIGERATOR IV KEYS XX PRN (17:45)
[2017-04-15] MEDS ORDERED: FENTANYL/ROPIVACAINE/NACL BAG 200 ML EPIDURAL SCH (17:45)
[2017-04-15] MEDS ORDERED: diphenhydrAMINE INJ 50MG/ML VIAL (J1200) IV PRN (17:45)
[2017-04-15] MEDS ORDERED: ONDANSETRON 4MG/2ML VIAL (J2405) IV PRN (17:45)
[2017-04-15] MEDS ORDERED: NALOXONE INJ 0.4 MG/1 ML VIAL (J2310) IV PRN (17:45)
[2017-04-15] MEDS ORDERED: ePHEDrine SULFATE 25 MG/5 ML(5MG/ML) SYRINGE IV PRN (17:45)
[2017-04-15] MEDS ORDERED: EPIDURAL COMMENT XX SCH (17:45)
[2017-04-15] MEDS ORDERED: EPIDURAL/PCA KEYS XX PRN (17:45)
[2017-04-15] MEDS ORDERED: OXYTOCIN DRIP 30 UNITS in APPROPRIATE DILUENT 1 EA IV SCH (18:00)
--- NOTE | 2017-04-15 18:21 | IPNPDOC ---
Text Note Date of Service The patient was seen on 04/15/17. NOTE SUBJECTIVE: Patient received epidural and reports she is comfortable. OBJECTIVE: FHR 130, moderate variability, positive accelerations, occasional early decelerations. Contractions every 1 to 4.5 minutes. ASSESSMENT: IUP at 38.6 weeks gestation, active labor, Category I FHR tracing PLAN: Pitocin ordered. Patient counseled. Anticipate cervical change and . VS,Fishbone, I+O VS, Fishbone, I+O Laboratory Tests 04/15/17 06:42 Red Blood Count 4.14, Mean Corpuscular Volume 87.2, Mean Corpuscular Hemoglobin 28.7, Mean Corpuscular Hemoglobin Concent 33.0, Red Cell Distribution Width 14.4 Vital Signs Date Time Temp Pulse Resp B/P (MAP) Pulse Ox O2 Delivery O2 Flow Rate FiO2 04/15/17 17:24 96 18 128/86 (100) 04/15/17 16:46 98.3 ELLIOT RICHARDS CNM Apr 15, 2017 18:21
[2017-04-16] MEDS ORDERED: OXYTOCIN DRIP 30 UNITS in APPROPRIATE DILUENT 1 EA IV SCH (00:26)
[2017-04-16] MEDS ORDERED: DIBUCAINE 1% OINTMENT 30GM TOP PRN (00:30)
[2017-04-16] MEDS ORDERED: IBUPROFEN 800 MG TAB PO PRN (00:30)
[2017-04-16] MEDS ORDERED: METHYLERGONOVINE MALEATE 0.2 MG TAB PO PRN (00:30)
[2017-04-16] MEDS ORDERED: MEASLES,MUMPS,RUBELLA VACCINE INJ (MMR-II) (90707) SC SCH (00:30)
[2017-04-16] MEDS ORDERED: DOCUSATE SODIUM 100 MG CAP PO PRN (00:30)
[2017-04-16] MEDS ORDERED: ACETAMINOPHEN 500 MG TAB PO PRN (00:30)
[2017-04-16] MEDS ORDERED: RHOGAM 300 MCG (1500 IU) INJ (J2790) IM SCH (00:30)
--- NOTE | 2017-04-16 00:53 | DNPDOC ---
[facility] Delivery Note Delivery Note DATE OF DELIVERY: 04/15/17 at 2328 PROCEDURE: Spontaneous vaginal delivery. PROVIDER: Elliot Francisco CNM, CRUZ ANESTHESIA: epidural. ESTIMATED BLOOD LOSS: 150 mL. FINDINGS: 7 pounds 10 ounces, 3470 grams, male infant, Score 8/9, nuchal cord times 1 tight, GHTN. DELIVERY SUMMARY: Patient is a 21-year-old female who is now a at 38.6 weeks gestation who was diagnosed with GHTN today based off of her BP's in the hospital today. She presented to L&D with SROM at 0400. She received a dose of cytotec and Pitocin for augmentation. She obtained an epidural for pain management. The patient progressed to fully dilated at 2244 and pushed to a live male in the JOSE R position with restitution to LOT at 2328. A tight nuchal cord was noted and not reduced until after delivery of the corpus. The anterior shoulder delivered with ease and the corpus immediately followed. The baby was placed on the maternal abdomen active and crying with stimulation. The cord was clamped times 2 after 2 minutes and cut by the patient's brother. A 3-vessel cord was noted. The placenta delivered spontaneously and intact at 2333. Uterine hemostasis was achieved via rapid infusion of IV Pitocin and uterine fundal massage. The perineum and vagina were inspected and found to have bilateral labial abrasions and a perineal abrasion that were not repaired due to good hemostasis. Mom plans to breast and bottle feed. She plans to name her baby "Jesus Cifuentes Jr." Both mom and baby are in stable condition. ELLIOT FRANCISCO CNM Apr 16, 2017 00:53
[2017-04-16 02:00] VITALS: BP 137/80
[2017-04-16 06:00] VITALS: BP 134/74
[2017-04-16] MEDS: PRENATAL VITAMINS CHEWABLE TABLET PO SCH (08:50)
[2017-04-16 18:33] VITALS: BP 129/77
[2017-04-17 05:58] VITALS: BP 136/80
[2017-04-17] MEDS: PRENATAL VITAMINS CHEWABLE TABLET PO SCH (08:34)
[2017-04-17] MEDS ORDERED: ACET50TAOT PO (14:33)
[2017-04-17] MEDS ORDERED: MOTR200T44 PO (14:38)
[2017-04-17] MEDS ORDERED: COLA100C5 PO (14:39)
== END 2017-04-17 15:05 | disposition home or self-care (01) | DRG 560 ==
LOC: M LDO 05:04 → M LDI 06:03 → M OBS 04-16 01:54
PROVIDERS: ADMIT Obstetrics & Gynecology; ATTEND Advanced Practice Midwife
PROC: 10E0XZZ Delivery of Products of Conception, External Approach (ICD-10-PCS; principal; 2017-04-15)
DX: O99.02 Anemia complicating childbirth (principal); E05.90 Thyrotoxicosis, unspecified without thyrotoxic crisis or storm; O99.284 Endocrine, nutritional and metabolic diseases complicating childbirth; D64.9 Anemia, unspecified; Z3A.38 38 weeks gestation of pregnancy; O69.1XX0 Labor and delivery complicated by cord around neck, with compression, not applicable or unspecified; O13.4 Gestational [pregnancy-induced] hypertension without significant proteinuria, complicating childbirth; Z37.0 Single live birth